=== PATIENT | male | born 1950 | race Caucasian/White ===

== ENCOUNTER 2020-05-03 13:03 | Inpatient (IN) | payer MEDICARE ==
[~2020-05-03] VITALS: Ht 180.3 cm; Wt 103.9 kg
[2020-05-03 13:11] VITALS: BP 149/66
[2020-05-03] MEDS ORDERED: BISOPROLOL FUMAR5 MG PO (13:25)
[2020-05-03] MEDS ORDERED: AMARYL4 MG PO (13:27)
[2020-05-03] MEDS ORDERED: TRADJENTA5 MG PO (13:28)
[2020-05-03 13:34] LABS: URINE BILIRUBIN NEGATIVE (Negative); URINE BLOOD NEGATIVE (Negative); URINE CLARITY CLEAR; URINE COLOR YELLOW; URINE GLUCOSE-RANDOM 3+ (Negative); URINE KETONES 1+ (Negative); URINE LEUKOCYTES-REFLEX NEGATIVE (Negative); URINE NITRITE-REFLEX NEGATIVE (Negative); URINE PROTEIN 1+ (Negative); URINE SPECIFIC GRAVITY 1.015 (1.005-1.030); URINE UROBILINOGEN 0.2 E.U./dl (0.2-1.0)
[2020-05-03 13:45] LABS: ABSOLUTE BASOPHILS 0.1 thou/uL (0.0-0.2); ABSOLUTE EOSINOPHILS 0.1 thou/uL (0.0-0.7); ABSOLUTE MONOCYTES 0.4 thou/uL (0.0-1.2); ABSOLUTE NEUTROPHILS 7.1 thou/uL (1.6-8.1); HEMATOCRIT 47.1 % (42.0-52.0); HEMOGLOBIN 16.5 gm/dL (14.0-18.0); LYMPHOCYTES 11.9 %; MCH 28.1 pg (26.0-34.0); MCHC 34.9 g/dL (28.0-37.0); MCV 80.4 fL (80.0-100.0); MONOCYTES 4.2 %; NUCLEATED RBCS 0 /100WBC; PLATELET COUNT* 217 thou/uL (150-400); POLYS 81.9 %; RBC 5.86 mil/uL (4.50-6.00); RDW-CV 12.8 % (10.5-14.5); WBC 8.6 thou/uL (4.0-11.0)
[2020-05-03 13:55] LABS: CALCIUM 9.4 mg/dL (8.5-10.1); POTASSIUM 4.3 mmol/L (3.5-5.1)
[2020-05-03 13:58] LABS: APTT 26.2 Seconds (25.0-31.3); PROTIME 11.1 Seconds (9.20-11.50)
[2020-05-03 14:06] LABS: ALBUMIN 3.9 g/dL (3.4-5.0); TOTAL BILIRUBIN 0.4 mg/dL (<0.1-1.0); TOTAL PROTEIN 7.7 g/dL (6.4-8.2)
--- NOTE | 2020-05-03 16:35 | EKG ---
[place] [address] ELECTROCARDIOGRAM REPORT Name: SEGUN CHOUDHURY Room: [place] [address] ADM IN [facility]#: [id number] Admission: 05/03/20 Attend Phys: Ga Huber, Discharge: Date of : 46 Date of Service: 05/03/20 1341 Report #: [id number] THIS REPORT FOR: //name// [facility] ED Test Date: 2020-05-03 Test Time: 13:41:12 Pat Name: SEGUN CHOUDHURY Department: Room: [facility] Gender: M Senior Support Engineer: CCD : 1950 Requested By: Ramu Prince Order Number: [id number] MD: Joe Woodruff Measurements Intervals Worth Rate: 65 P: -2 DC: 156 QRS: 3 QRSD: 95 T: 41 QT: 401 QTc: 417 Interpretive Statements Sinus rhythm RSR' in V1 or V2, right VCD or RVH Baseline wander in lead(s) V1 No previous ECG available for comparison Electronically Signed On 05-03-2020 16:35:24 [employer] by Joe Woodruff [email or web address] <ELECTRONICALLY SIGNED> By: Joe Woodruff MD, FACC 05/03/20 1635 1341 1341 Joe Woodruff MD, FAC /EPI
[2020-05-03 17:54] VITALS: BP 162/74
[2020-05-03 21:00] VITALS: BP 180/74
[2020-05-04] VITALS (7 sets, daily range): BP systolic 130–164; BP diastolic 45–67
[2020-05-04 04:49] LABS: ABSOLUTE BASOPHILS 0.1 thou/uL (0.0-0.2); ABSOLUTE EOSINOPHILS 0.3 thou/uL (0.0-0.7); ABSOLUTE LYMPHOCYTES 2.2 thou/uL (0.8-5.3); ABSOLUTE MONOCYTES 0.5 thou/uL (0.0-1.2); ABSOLUTE NEUTROPHILS 5.1 thou/uL (1.6-8.1); EOSINOPHILS 3.3 %; HEMATOCRIT 40.6 % (42.0-52.0); MCH 28.2 pg (26.0-34.0); MCHC 35.2 g/dL (28.0-37.0); MCV 80.2 fL (80.0-100.0); MONOCYTES 6.2 %; MPV 7.4 fl. (7.2-11.1); NUCLEATED RBCS 0 /100WBC; PLATELET COUNT* 197 thou/uL (150-400); POLYS 62.5 %; RBC 5.07 mil/uL (4.50-6.00); RDW-CV 12.6 % (10.5-14.5); WBC 8.2 thou/uL (4.0-11.0)
[2020-05-04 05:03] LABS: CHOLESTEROL 187 mg/dL (<200); HDL CHOLESTEROL 26 mg/dL (>40); LDL CHOLESTEROL 93 mg/dL (<100); TC:HDL 7.2 Ratio (Not establshd); TRIGLYCERIDE 343 mg/dL (<150); VLDL 69 mg/dL (<40)
--- NOTE | 2020-05-04 05:08 | NUR ---
Pt AOX4, Pt denies pain, no nausea or vomiting. Pt tracing sinus rhythm on tele. Beginning of shift SBP 180'. Pt given 1x hydralazine, improved to 130's. Pt still report mild diziness. Pt had CTA angio head and neck. Result communicated to transportation supervisor Neurology and received ordered for MRI head today. Reminded to use call light for assistance. Will continue POC.
[2020-05-04 05:09] LABS: HEMOGLOBIN 14.3 gm/dL (14.0-18.0)
[2020-05-04 05:11] LABS: SERUM ASSESSMENT Slight Lipemia
[2020-05-04 05:20] LABS: CALCIUM 8.5 mg/dL (8.5-10.1); CREATININE 0.9 mg/dL (0.6-1.3); POTASSIUM 3.9 mmol/L (3.5-5.1)
--- NOTE | 2020-05-04 09:14 | NUR ---
CM SPOKE TO THE PT TO DISCUSS CM ASSESSMENT. PT A&O, AND INDEPENDENT WITH ADL'S. PT RESIDES AT HOME WITH SIGNIFICANT OTHER. PT USES 0 DME. PT HAS 0 HX OF HH OR SNF. CM WILL REMAIN AVAILABLE TO ASSIST AND FOLLOW NEEDED.
--- NOTE | 2020-05-04 13:35 | 2DMMODE ---
[place] [address] 2 D/M-MODE ECHOCARDIOGRAM Name: ANGLESEGUN WANG William Room: [address] IN [facility]#: [id number] Admission: 05/03/20 Attend Phys: Ga Huber, Discharge: Date of : 46 Date of Service: 05/04/20 1335 Report #: [id number] THIS REPORT FOR: cc: Efrain Vasquez MD, Christopher B. MD Blick, David R. MD [facility] ~ APPROVED REPORT Study performed: 05/04/2020 10:18:26 EXAM: Comprehensive 2D, Doppler, and color-flow Echocardiogram Patient Location: In-Patient Room #: 229 Status: routine BSA: 2.23 HR: 65 bpm BP: 148/56 mmHg Rhythm: NSR Other Information Study Quality: Good Indications Abnormal ECG 2D Dimensions IVSd: 11.44 (7-11mm) LVOT Diam: 19.46 (18-24mm) LVDd: 49.78 mm PWd: 9.65 (7-11mm) Ascending Ao: 30.31 (22-36mm) LVDs: 29.03 (25-40mm) Aortic Root: 28.18 mm Volumes Left Atrial Volume (Systole) LA ESV Index: 24.40 mL/m2 Aortic Valve AoV Peak Zoran.: 1.97 m/s AO Peak Gr.: 15.58 mmHg LVOT Max P.00 mmHg AO Mean Gr.: 9.03 mmHg LVOT Mean P.92 mmHg LVOT Max V: 1.22 m/s AO V2 VTI: 40.19 cm LVOT Mean V: 0.78 m/s AP (VTI): 1.93 cm2 LVOT V1 VTI: 26.06 [place] [address] 2 D/M-MODE ECHOCARDIOGRAM Name: SEGUN CHOUDHURY Room: [address] IN [facility]#: [id number] Admission: 05/03/20 Attend Phys: Ga Huber, Discharge: Date of : 46 Date of Service: 05/04/20 1335 Report #: [id number] Mitral Valve E/A Ratio: 1.19 MV Decel. Time: 232.06 ms MV E Max Zoran.: 0.80 m/s MV PHT: 67.30 ms MVA (PHT): 3.27 cm2 TDI E/Lateral E': 6.67 E/Medial E': 8.00 Medial E' Zoran.: 0.10 m/s Lateral E' Zoran.: 0.12 m/s Pulmonary Valve PV Peak Zoran.: 0.97 m/s PV Peak Gr.: 3.73 mmHg Tricuspid Valve RAP Estimate: 5.00 mmHg TR Peak Gr.: 34.13 mmHg RVSP: 39.00 mmHg PA Pressure: 39.00 mmHg Left Ventricle The left ventricle is normal size. There is normal LV segmental wall motion. There is normal left ventricular wall thickness. Left ventricular systolic function is severely decreased. LVEF is 60-65%. The left ventricular diastolic function is normal. Right Ventricle The right ventricle is normal size. The right ventricular systolic function is normal. Atria The left atrium size is normal. The right atrium size is normal. Aortic Valve Mild aortic valve sclerosis. No aortic regurgitation is present. Mild aortic stenosis. Mitral Valve The mitral valve is normal in structure. There is no mitral valve regurgitation noted. No evidence of mitral valve stenosis. Tricuspid Valve The tricuspid valve is normal in structure. Trace tricuspid regurgitation. estimated pa pressure 40 [place] [address] 2 D/M-MODE ECHOCARDIOGRAM Name: SEGUN CHOUDHURY Room: [address]#: [id number] Admission: 05/03/20 Attend Phys: Ga Huber, Discharge: Date of : 46 Date of Service: 05/04/20 1335 Report #: [id number] Pulmonic Valve The pulmonary valve is normal in structure. There is no pulmonic valvular regurgitation. Great Vessels The aortic root is normal in size. IVC is not well visualized. Pericardium There is no pericardial effusion. <Conclusion> LVEF is 60-65%. Mild aortic stenosis. Trace tricuspid regurgitation. estimated pa pressure 40 mm Hg <ELECTRONICALLY SIGNED> By: Patrick Pierre MD, [facility] 05/04/20 1335 1335 1335 Patrick Pierre MD, FACC /INF
--- NOTE | 2020-05-04 16:31 | NUR ---
PT IS ALERT AND ORIENTED X4 SLIGHTLY ANXIOUS ABOUT ACTUAL DIAGNOSIS AND KNOWING WHAT IS GOING ON WITH HIM PT IS PREDM AND TAKES MEDS AT HOMES PER PT PT IS NOW ACHS WITH INSULIN LUNCH BS WAS 247 LSCTA NO COUGH NOTED UP AD GERARDO BM TODAY TINGLING IN FEET FOR YEARS NOW DOES NOT TAKE MEDS FOR IT NO DIZZINESS OR NAUSEA NOTED NO OTHER CONCERNS AT THIS TIME
[2020-05-05 02:06] LABS: GLYCOHEMOGLOBIN (HGB A1C) 8.4 % (4.8-5.6)
[2020-05-05 04:00] VITALS: BP 133/54
[2020-05-05 04:46] LABS: ABSOLUTE BASOPHILS 0.1 thou/uL (0.0-0.2); ABSOLUTE EOSINOPHILS 0.3 thou/uL (0.0-0.7); ABSOLUTE LYMPHOCYTES 1.9 thou/uL (0.8-5.3); ABSOLUTE MONOCYTES 0.4 thou/uL (0.0-1.2); ABSOLUTE NEUTROPHILS 3.9 thou/uL (1.6-8.1); BASOPHILS 1.2 %; HEMATOCRIT 41.8 % (42.0-52.0); HEMOGLOBIN 14.6 gm/dL (14.0-18.0); LYMPHOCYTES 28.8 %; MCH 28.2 pg (26.0-34.0); MCHC 34.9 g/dL (28.0-37.0); MCV 80.7 fL (80.0-100.0); MONOCYTES 6.6 %; MPV 7.6 fl. (7.2-11.1); NUCLEATED RBCS 0 /100WBC; PLATELET COUNT* 178 thou/uL (150-400); POLYS 58.4 %; RBC 5.17 mil/uL (4.50-6.00); RDW-CV 12.8 % (10.5-14.5); WBC 6.7 thou/uL (4.0-11.0)
[2020-05-05 05:25] LABS: ALBUMIN 3.2 g/dL (3.4-5.0); CALCIUM 8.3 mg/dL (8.5-10.1); CREATININE 0.8 mg/dL (0.6-1.3); POTASSIUM 3.9 mmol/L (3.5-5.1); TOTAL BILIRUBIN 0.2 mg/dL (<0.1-1.0); TOTAL PROTEIN 6.4 g/dL (6.4-8.2)
--- NOTE | 2020-05-05 07:58 | NUR ---
Alert and oriented x 4. VS stable,roomair sat 96%. Monitor rhythym SR-SB. He denies pain. Up independently in room. He slept well.
[2020-05-05 08:00] VITALS: BP 171/61
[2020-05-05 08:01] VITALS: BP 156/66
[2020-05-05 08:02] VITALS: BP 174/76
--- NOTE | 2020-05-05 11:27 | NUR ---
CM INFORMED DURING PRIME ROUNDING OF THE PLAN OF CARE FOR THE PT. PLAN FOR PT TO D/C HOME TODAY WITH SELF-CARE. NO CM D/C PLANNING NEEDS ANTICIPATED. CM WILL REMAIN AVAILABLE TO ASSIST AND FOLLOW NEEDED.
[2020-05-05 12:07] VITALS: BP 191/60
--- NOTE | 2020-05-05 12:18 | CON ---
[address] [address] CONSULTATION Name: ANGLEKATHLEENSEGUN William Room: [address] IN [place]#: [id number] Admission: 05/03/20 Attend Phys: Ga Huber MD Discharge: Date of : 46 Report #: [id number] THIS REPORT FOR: cc: fErain Vasquez MD, Christopher B. MD ~ Patrick Pierre MD [facility] DATE OF SERVICE: 05/04/2020 CARDIOLOGY CONSULTATION HISTORY OF PRESENT ILLNESS: The patient is a 69-year-old single white male who I was asked to see in the hospital today after he complained of being dizzy. The patient has no previous history of heart disease. He does not exercise on a regular basis. He was doing well until yesterday, when he awakened from sleep, was lying in bed and felt lightheaded. When he got up, he then vomited. Because of weakness, he was brought here to [place] by car. He noted some tingling in his feet. However, he denied any slurred speech, blurred vision, weakness of his arm. He has had no recent diarrhea, bleeding, fever or cough. PAST MEDICAL HISTORY: He has had no surgical procedures. He does have a history of hypertension and diabetes. MEDICATIONS: His home medications consists of bisoprolol for blood pressure, Amaryl, Tradjenta. He used to be on a statin drug, which he stopped years ago. ALLERGIES: He has no known drug allergies. FAMILY HISTORY: His mother had valve replacement surgery. SOCIAL HISTORY: He is single, lives with his girlfriend in [place]. He works doing marketing. He smokes several cigarettes a day. No alcohol abuse. REVIEW OF SYSTEMS: No history of stroke, asthma, liver disease, kidney disease. He had a skin cancer removed in the past. No psychiatric illness. No chronic skin condition. PHYSICAL EXAMINATION: GENERAL: Revealed an elderly male, lying in bed. He appeared in no distress. VITAL SIGNS: His blood pressure is 150/70, pulse is 70, he is afebrile. HEENT: He was anicteric. Conjunctivae pink. Mucous membranes moist. NECK: Veins nondistended. No carotid bruits. Neck supple. CHEST: Clear to auscultation. CARDIOVASCULAR: Regular rate and rhythm, grade 2 systolic ejection murmurs. ABDOMEN: [place] [address] CONSULTATION Name: SEGUN CHOUDHURY Room: [address]#: [id number] Admission: 05/03/20 Attend Phys: Ga Huber MD Discharge: Date of : 46 Report #: [id number] EXTREMITIES: Had no edema. Dorsalis pedis pulses 3+. SKIN: Cool and dry. NEUROLOGIC: Nonfocal. DIAGNOSTIC DATA: ECG on admission showed a sinus rhythm with no significant ST or T-wave changes. His workup in the Emergency Room, he had a portable chest x-ray that showed normal heart size, clear lung mcpherson. CT scan of the head was performed without contrast that showed no acute abnormality. He had a CTA of the neck that showed 60% narrowing of the right internal carotid artery. LABORATORY WORK: Sodium 139, creatinine 0.9, glucose 172. Liver function studies were normal. Troponin 0.15. His cholesterol 187, triglycerides 343, HDL 26, LDL 93. White blood cell count 8.2, hemoglobin 14.3. IMPRESSION AND RECOMMENDATIONS: 1. Lightheaded spell. Reason unclear. No arrhythmia noted. The patient noted to have normal blood pressure. 2. Carotid stenosis. Consider carotid endarterectomy. 3. Hypertension. The patient is on a beta sandeep. 4. Diabetes. 5. Hypertriglyceridemia. I would consider fenofibrate. 6. Tobacco abuse. 7. Borderline troponin. No evidence of acute myocardial infarction. Recommend no further cardiac evaluation at this time. <ELECTRONICALLY SIGNED> By: Patrick Pierre MD, [facility] 05/05/20 1218 0931 1000Davivishal Pierre MD, FACC /nt
[2020-05-05] MEDS ORDERED: LIPITOR 40 MG T40 M1 PO (14:32)
[2020-05-05] MEDS ORDERED: ADULT LOW DOSE81 MG PO (14:33)
[2020-05-05] MEDS ORDERED: VITAMIN C1500 MG PO (14:34)
[2020-05-05] MEDS ORDERED: VITAMIN D310 MC2 PO (14:34)
[2020-05-05] MEDS ORDERED: NORVASC 2.5 MG2.5 M1 PO (14:35)
[2020-05-05 14:56] VITALS: BP 191/60
--- NOTE | 2020-05-15 21:14 | CON ---
[address] [address] CONSULTATION Name: SEGUN CHOUDHURY Room: [address] IN [place].#: [id number] Admission: 05/03/20 Attend Phys: Ga Huber MD Discharge: 05/05/20 Date of : 46 Report #: [id number] THIS REPORT FOR: cc: Efrain Vasquez MD, Christopher B. MD ~ Brett Mustafa MD DATE OF SERVICE: 05/04/2020 HISTORY OF PRESENT ILLNESS: This is a 69-year-old male patient who was evaluated by me for any neurological etiology for the patient's dizziness. The patient was discussed with the nurses taking care of this patient last night. The patient was discussed with Cardiology who has already seen the patient. The patient himself provided reasonable and reliable history. He said that he was checking his emails, and he had a sudden onset of dizziness. He also had some occipital headache, but it was not particularly severe. He had nausea and vomiting twice and those symptoms have abated. He initially did not want to come to Emergency Room, but subsequently he did. REVIEW OF SYSTEMS: A 14-point review of system was carried out. He said he is a diabetic as well as hypertensive. He also has been diagnosed with neuropathy because he has sensation in the lower extremities, which he described as something as Novocain is wearing off. He did not have this kind of episode before. His 14-point review of system was carried out and he does not complain of any ENT, respiratory, GI, , musculoskeletal, constitutional, dermatological, hematological, psychiatric, throat, allergic symptom associated with present symptomatology. PAST MEDICAL HISTORY: Negative for any stroke. FAMILY HISTORY: Negative for any early age CVA. SOCIAL HISTORY: He does smoke and does drink alcohol on occasions. PHYSICAL EXAMINATION: The patient's examinations indicate the patient is alert, responsive, able to follow simple and complex command. His speech, concentration, fund of knowledge and memory is at his baseline. Cranial nerve examination 2-12 looks unremarkable. He has symmetrical strength, sensation and reflexes in all 4 extremities. His reflexes in the lower extremity is absent. His position and touch is present, but he says touch feel altered. He does not have any cerebellar sign or papilledema. His cardiac and respiratory examination is unremarkable. There is no evidence of any respiratory difficulty. His pulses in the lower extremities are nicely palpable[place] [id number] CONSULTATION Name: SEGUN CHOUDHURY William Room: [address]#: [id number] Admission: 05/03/20 Attend Phys: Ga Huber MD Discharge: 05/05/20 Date of : 46 Report #: [id number] edema, cyanosis or jaundice. He is well-built individual who does not have any dysmorphic features of eyes, ears and face. He does not have any thyroid mass or any meningeal signs. His blood pressure is 148/56 and his respiration are 19, pulse is 63, temperature is 97.2. LABORATORY DATA: White count is 8.2. He has markedly abnormal lipid profile. IMPRESSION: 1. Dizziness, which is probably not neurological etiology. We need an MRI to further exclude that. 2. Pretty significant stenosis of the carotid, which is an incidental finding, but need to be addressed. We will await the MRI. If MRI demonstrate some old or new stroke in the distribution of either carotid, then the carotid should be considered symptomatic and he needs treatment for that. Surgical treatment will be considered. If MRI does not show any small stroke, old or new in those distribution then the carotid should be considered asymptomatic and treatment will be done accordingly. He is already on aspirin. He needs to stop smoking. He needs intensive statin therapy. We will do some other workup to see if any other etiology, which may be contributing to his symptoms need to be addressed. Some of that workup may have to be as an outpatient. Talked to Cardiology, it looks like they are going to do an echocardiogram in this patient. Thank you very much for this referral. <ELECTRONICALLY SIGNED> By: Brett Mustafa MD 05/15/20 2114 0942 [id number] Mustafa MD /nt
--- NOTE | 2020-05-15 21:14 | CON ---
[address] [address] CONSULTATION Name: KEISEGUN P Room: [address] IN [place].#: [id number] Admission: 05/03/20 Attend Phys: Ga Huber MD Discharge: 05/05/20 Date of : 46 Report #: [id number] THIS REPORT FOR: cc: Efrain Vasquez MD, Christopher B. MD ~ Brett Mustafa MD DATE OF SERVICE: 05/05/2020 HISTORY OF PRESENT ILLNESS: This is a 69-year-old male patient who was seen by me earlier today. I discussed the patient with Dr. Pierre from Cardiology. I also discussed the patient with hospitalist, Dr. Smith. The patient indicates his symptoms have completely resolved. He has not had any dizziness or nausea, vomiting since he came in here. In fact he has no further neurological symptoms. I examined him and his examination is pretty much unchanged. He does have what he described as neuropathy in the lower extremities, but it is mainly the feeling of sensory loss and that feeling is subjective. His lipid profile is abnormal. I had a long discussion with the patient. I discussed with him that he has what looks like he is asymptomatic carotid stenosis bilaterally. There is a controversy surrounding the management of asymptomatic carotid stenosis. If he has any suggestion of symptoms of TIA, he was addison to the Emergency Room and I discussed those symptoms with him. If those symptoms are in appropriate distribution, he will be an endarterectomy candidate. Otherwise, he should see a vascular surgeon. They typically monitor his carotid stenosis, but he should have discuss the management with them also. He wants to do that. Dr. Pierre is going to make an appointment with Dr. Daniels and that is what the patient wants to do. His dyslipidemia needs to be aggressively treated. He should take a full enteric coated aspirin until he starts having any stomach problem. I told him the question of his neuropathy was not addressed and that needs to be addressed as an outpatient. He will need EMG and he will need some further workup. He understood all those and he can make a followup appointment with my office in about 1 week. I do not think his dizziness was related to any of the pathology which was detected and if all these pathologies were incidental finding. He does need to manage his vascular risk factor. He needs to lose weight. He needs to do exercise and he needs to eat healthy. I discussed all of it with him and he said he plans to do that. I spent more than 35 minutes of time taking care of this patient today and majority was spent counseling on above topic. <ELECTRONICALLY SIGNED> By: Brett Mustafa MD 05/15/202113 47 19Parmichael Mustafa MD /nt
== END 2020-05-05 15:15 | disposition home or self-care (01) | DRG 282 ==
LOC: M.ERS 13:03 → M.2W 15:13 → M.TBA-ER 15:13 → M.2W 17:43
PROVIDERS: Family Medicine; ADMIT Internal Medicine; ATTEND Internal Medicine
DX: I21.4 Non-ST elevation (NSTEMI) myocardial infarction (principal); I65.23 Occlusion and stenosis of bilateral carotid arteries; E11.65 Type 2 diabetes mellitus with hyperglycemia; E78.1 Pure hyperglyceridemia; F17.210 Nicotine dependence, cigarettes, uncomplicated; E11.40 Type 2 diabetes mellitus with diabetic neuropathy, unspecified; Z20.822 Contact with and (suspected) exposure to COVID-19; Z71.6 Tobacco abuse counseling; Z88.0 Allergy status to penicillin; Z79.899 Other long term (current) drug therapy